=== PATIENT | male | born 1965 ===

== ENCOUNTER 2021-08-08 16:07 | Outpatient (CLI) | payer OTHER | END 2021-08-08 16:15 | disposition home or self-care (01) | LOC: RAD 16:07 | PROVIDERS: ATTEND Specialist | DX: N13.2 Hydronephrosis with renal and ureteral calculous obstruction (principal); N23 Unspecified renal colic ==

== ENCOUNTER 2023-05-12 16:09 | Outpatient (CLI) | payer OTHER | END 2023-05-12 16:14 | disposition home or self-care (01) | LOC: RAD 16:09 | DX: M25.521 Pain in right elbow (principal) ==

== ENCOUNTER 2024-01-28 08:49 | Outpatient (CLI) | payer OTHER | END 2024-01-28 08:56 | disposition home or self-care (01) | LOC: MAMO-SONO 08:49 | PROVIDERS: ATTEND Obstetrics & Gynecology | DX: N60.11 Diffuse cystic mastopathy of right breast (principal) ==

== ENCOUNTER 2024-02-01 09:31 | Outpatient (CLI) | payer OTHER | END 2024-02-01 09:53 | disposition home or self-care (01) | LOC: MRI 09:31 | PROVIDERS: ATTEND Otolaryngology Otology & Neurotology | DX: J34.89 Other specified disorders of nose and nasal sinuses (principal); R43.9 Unspecified disturbances of smell and taste | CPT/HCPCS: 70553 ==

== ENCOUNTER 2024-05-26 09:33 | Outpatient (CLI) | payer OTHER | END 2024-05-26 09:38 | disposition home or self-care (01) | LOC: RAD 09:33 | PROVIDERS: ATTEND Specialist | DX: J45.998 Other asthma (principal) ==